=== PATIENT | female | born 1930 | race Caucasian/White ===

== ENCOUNTER 2017-01-08 08:33 | Inpatient (IN) | payer OTHER ==
[2017-01-08] VITALS (38 sets, daily range): BP systolic 64–127; BP diastolic 24–110
[~2017-01-08] VITALS: Ht 162.6 cm; Wt 72.6 kg
--- NOTE | 2017-01-08 08:33 | NUR ---
Patient BIBA to bed [address] Ni at bedside evaluating patient.
--- NOTE | 2017-01-08 08:36 | NUR ---
PT BROUGHT IN BY AMBULANCE FROM [facility] DUE TO LETHARGY AND PER REPORT UNABLE TO USE RIGHT SUBCLAVIAN ADIA CATHETER.PT IS ORIENTED TO PERSON. BI PAP SETTING OF IPAP OF 10 CM H2O;EPAP OF 5 CM H2O; 40 % O2.PT HAS A HX OF HTN ,DM,ESDRD;W/ ADIA CATH;SKIN IS INTACT;HOB ELEVATED;NEEDS ATTENDED;SAFETY MEASURES DONE;NEEDS ATTENDED;POSITIONED FOR COMFORT.
[2017-01-08] MEDS ORDERED: NACL 0.9% 500 ML IV SCH (08:37)
[2017-01-08] MEDS ORDERED: ACETAMINOPHEN EXTRA STRENGTH 500 MG TAB PO ONE (08:40)
[2017-01-08] MEDS ORDERED: ALBUTEROL SULFATE/IPRATROPIU 3 ML SOL IH ONE (08:40)
[2017-01-08] MEDS ORDERED: LEVOFLOXACIN 500 MG/D5W PREMIX 100 ML IV ONE (08:40)
--- NOTE | 2017-01-08 08:45 | NUR ---
PATIENT OUT OF ROOM THIS TIME IN RADIOLOGY FOR CHEST CAT SCAN
--- NOTE | 2017-01-08 08:49 | NUR ---
Patient taken to radiology via gurney at this time.
--- NOTE | 2017-01-08 09:01 | NUR ---
ARTERAIL BLOOD GAS DRAWN ORDERED PUNCTURE SITE AT RIGHT RADIAL WITH POST PUNCTURE SITE PRESSURE NO EVIDENCE OF TRAUMA TOLERATED PROCEDURE WELL WITHOUT INCIDENT
--- NOTE | 2017-01-08 09:10 | NUR ---
SPUTUM COLLECTION VIA NASOTRACHEAL SUCTION HYPEROXGENATION USED PRE AND POST CATHETER PASSING USING ASEPTIC TECHNIQUE [place] LUBRICANT APPLIED AT PROXIMAL END OF A 14FR CATHETER INSERTION INTO LEFT NARES AFTER TWO MINUTES INSERTION INTO RIGHT NARES COLLECTION OF LARGE THICK YELLOW SECRETIONS TOLERATED WELL WITHOUT INCIDENT
--- NOTE | 2017-01-08 09:15 | NUR ---
HHN THERAPY GIVEN ORDERED TOLERATED WELL WTIHOUT INCIDENT
--- NOTE | 2017-01-08 09:25 | NUR ---
BIPAP ORDERED SETTINGS: IPAP [id number] EPAP 5 cmH20 BACK UP RATE 14 FIO2 40% KEEP SATURATION GREATER THAN 94% PLACED PATIENT ON A BIPAP (VISION) PLUGGED INTO RED OUTLET TO A MEDIUM FACIAL MASK SECURED WITH A HEAD STRAP TOLERATING WELL WITHOUT INCIDENT
--- NOTE | 2017-01-08 09:42 | NUR ---
CRITICAL LAB VALUE RELAYED TO DR ALLEN.
[2017-01-08] MEDS ORDERED: NACL 0.9% 500 ML IV ONE (10:05)
--- NOTE | 2017-01-08 10:23 | NUR ---
PT IS RESTING ON BED;BP IS LOW;NOTIFIED DR ALLEN;ORDERED FOR 1 MORE IV LINE AQND TO START LEVOPHED;
[2017-01-08] MEDS ORDERED: NOREPINEPHRINE 4 MG in DEXTROSE 5% 250 ML IV ONE (10:30)
[2017-01-08] MEDS ORDERED: ALBUTEROL SULF0.5 M1 IH (10:47)
[2017-01-08] MEDS ORDERED: DONNATAL1 TA1 PO (10:47)
[2017-01-08] MEDS ORDERED: SENNA8.6 M1 PO (10:47)
[2017-01-08] MEDS ORDERED: ACETAMIN-CODE12.5 ML PO (10:47)
[2017-01-08] MEDS ORDERED: LEADER MELATONIN5 MG PO (10:47)
[2017-01-08] MEDS ORDERED: VENTOLIN H0.09 MG/Ac IH (10:47)
[2017-01-08] MEDS ORDERED: SUCRALFATE1 G1 PO (10:47)
[2017-01-08] MEDS ORDERED: ATROVENT H0.017 MG/A IH (10:47)
[2017-01-08] MEDS ORDERED: MUCINEX600 M1 PO (10:47)
[2017-01-08] MEDS ORDERED: REGLAN5 M1 PO (10:47)
[2017-01-08] MEDS ORDERED: NEPHRO-VITE1 TA1 (10:47)
[2017-01-08] MEDS ORDERED: BUSPIRONE HCL10 M1 PO (10:47)
[2017-01-08] MEDS ORDERED: GEMFIBROZIL600 M1 PO (10:47)
[2017-01-08] MEDS ORDERED: VITAMIN D22000 IU PO (10:47)
[2017-01-08] MEDS ORDERED: LAXATIVE5 M1 PO (10:47)
[2017-01-08] MEDS ORDERED: LEVOTHYROXIN0.025 M2 PO (10:47)
[2017-01-08] MEDS ORDERED: PREDNISONE20 M1 PO (10:47)
[2017-01-08] MEDS ORDERED: HYDRALAZINE HCL25 M2 PO (10:47)
[2017-01-08] MEDS ORDERED: BENTYL10 MG PO (10:47)
[2017-01-08] MEDS ORDERED: GLYCOLAX119 GM PO (10:47)
[2017-01-08] MEDS ORDERED: ACIDOPHILU1 Billion (10:47)
[2017-01-08] MEDS ORDERED: NACL 0.9% 1,000 ML IV SCH (10:48)
[2017-01-08] MEDS ORDERED: ONDANSETRON 4 MG/2 ML VIAL IVP PRN (10:50)
[2017-01-08] MEDS ORDERED: ALBUTEROL SULFATE/IPRATROPIU 3 ML SOL IH PRN ×4 (10:55→13:55)
[2017-01-08] MEDS ORDERED: NOREPINEPHRINE 4 MG/4 ML VIAL IV ONE (10:56)
--- NOTE | 2017-01-08 12:15 | NUR ---
Patient will be admitted to care of DR HOWARD. Admited to ICU. Will go to room 3. Belongings list completed. Report to RUPERT PACHECO.
--- NOTE | 2017-01-08 12:45 | NUR ---
CENTRAL LINE CATH DONE BY DR ALLEN AND WICHO LEYVA.PT TOLERATED WELL PROCEDURE.NO ACUTE DISTRESS NOTED AT THIS TIME;WILL CONTINUE TO MONITOR PT.
--- NOTE | 2017-01-08 13:09 | NUR ---
LEVOPHED DRIP WAS INCREASE TO 4 MCG W/ BASELINE BP OF 82/46.
--- NOTE | 2017-01-08 13:15 | NUR ---
Donnell mckeon in ED - 01/08/17 at 1336 by [facility] LEVOPHED INCREASED TO 4 MCG PER MIN PER ERMD INSTRUCTION;CONCRETE BOOM OPERATOR NOTIFIED.
--- NOTE | 2017-01-08 13:15 | NUR ---
LEVOPHED WAS INCREASE TO 4 MCG PER ERMD INSTRUCTION;BP OF 82/46;HR OF 107;94 %.TEMP OF 99.2 F.
--- NOTE | 2017-01-08 13:20 | NUR ---
RECEIVED PT FROM ER NURSE. PT LETHARGIC BUT AROUSABLE. ALERT TO SELF AND PLACE. [place]ER SPEAKING ONLY. MUMBLING AN SLURRING OF SPEECH. PT CAN UNDERSTAND SIMPLE COMMANDS. WEAKNESS NOTED. RECEIVED WITH R FEMORAL CENTRAL LINE TRIPLE LUMEN. PATENT AND INTACT. RUNNING LEVOPHED IV AT 4 MCG/MIN. PERIPHERAL IV ACCESS NOTED ON RIGHT AND LEFT HAND, 24 GAUGE EACH. PATENT AND INTACT. PAIN NOTED ONLY DURING TRANSFER. NS IVF STARTED AND RUNNING AT 20 CC/HR. FAMILY AT BEDSIDE. HX PROVIDED BY FAMILY. RT AT BEDSIDE TO RESUME BIPAP. TOLERATED WELL. ECG MONITORING STARTED. WILL CONTINUE TO MONITOR.
--- NOTE | 2017-01-08 14:00 | NUR ---
MD GUSTAVO AT BEDSIDE. ORDERS RECEIVED REGARDING LEVOPHED DRIP.
--- NOTE | 2017-01-08 14:15 | NUR ---
INCREASED LEVOPHED DRIP TO 6 MCG/MIN PER MD ORDER D/T CONTINUOUS LOW BP
[2017-01-08] MEDS ORDERED: SENNA 8.6 MG TAB PO PRN (14:25)
[2017-01-08] MEDS ORDERED: DEXTROSE 50% 50 ML SYR IVP PRN (14:30)
--- NOTE | 2017-01-08 14:45 | NUR ---
INCREASED LEVOPHED TO 8 MCG/MIN PER MD ORDER FOR CONTINUE LOW BP
[2017-01-08] MEDS: ALBUTEROL SULFATE/IPRATROPIU 3 ML SOL IH SCH ×3 (15:24→23:00)
[2017-01-08] MEDS ORDERED: NOREPINEPHRINE 4 MG in DEXTROSE 5% 250 ML IV PRN (15:30)
--- NOTE | 2017-01-08 16:15 | NUR ---
PATIENT PULLING ON BIPAP MASK REFUSING TO WEAR REMOVED AND PLACED ON SUPPLEMENTAL OXYGENT VIA VENTI MASK AT 40%/12 LPM BIPAP VISION ON STANDBY
--- NOTE | 2017-01-08 16:15 | NUR ---
PT UNABLE TO TOLERATE BIPAP. CANNOT TOLERATED MASK MANIFESTED BY SCREAMING, AGITATION, AND CONSISTENTLY ATTEMPTING TO REMOVE MASK. RT CONSULTED. CHANGE TO VENTURI MASK FIO2 40% 12 L.
[2017-01-08] MEDS ORDERED: VANCOMYCIN PER PHARMACY MC PRN (17:10)
[2017-01-08] MEDS: BLOOD GLUCOSE MONITORING 1 DEV DEV FS SCH ×2 (17:22→21:00)
[2017-01-08] MEDS: NACL 0.9% 1,000 ML IV SCH (17:24)
[2017-01-08] MEDS ORDERED: PIPER/TAZO 2.25GM/D5W PREMIX 50 ML IV SCH (18:00)
[2017-01-08] MEDS ORDERED: ALBUTEROL SULFATE/IPRATROPIU 3 ML SOL IH SCH (18:00)
[2017-01-08] MEDS ORDERED: CLINDAMYCIN 600 MG in DEXTROSE 5% 50 ML IV SCH (18:00)
--- NOTE | 2017-01-08 18:00 | NUR ---
PLACED PT ON NC 3 L FOR DINNER. PT TOLERATED WELL. O2 SAT BETWEEN 96-98%. WILL LEAVE IS. PT REMAINS COMFORTABLE. WILL CONTINUE TO MONITOR
--- NOTE | 2017-01-08 19:00 | NUR ---
REPORT GIVEN TO RUPERT COOPER. PT IS SLEEPING IN BED. SIDE RAILS X [address] BED AT LOWEST SETTING. FALL, SAFETY, ASPIRATION PRECAUTION MAINTAINED.
--- NOTE | 2017-01-08 19:15 | NUR ---
RECEIVED PATIENT ON BED, AWAKE, ALERT AND ORIENTED; [place]K SPEAKING ONLY; ON 3 LITERS , SO2 96%. CARDIACSCOPE SHOWS ON SINUS RHYTHM WITH OCCASIONAL PVC'S AND PAC'S. COMMENCING ON IVF NORMAL SALINE AT 100 ML/HR VIA CENTRAL LINE ON RIGHT FEMORAL AND ON LEVOPHED DRIP AT 8 MCG/MIN TITRATED TO KEEP SBP ABOVE 90 OR MEAN OF 65. ABDOMEN IS SOFT, NON TENDER, ACTIVE BOWEL SOUNDS.
--- NOTE | 2017-01-08 19:45 | NUR ---
WITH BOUTS OF PRODUCTIVE COUGH BUT PATIENT UNABLE TO COUGH OUT SPUTUM; SHE KEEPS ON SWALLOWING.
[2017-01-08] MEDS ORDERED: VANCOMYCIN 1GM/DEXT 5% PREMIX 200 ML IV SCH (20:00)
[2017-01-08] MEDS ORDERED: NOREPINEPHRINE 8 MG in DEXTROSE 5% 250 ML IV PRN (20:00)
--- NOTE | 2017-01-08 20:00 | NUR ---
ASSISTED PATIENT IN TURNING AND REPOSITIONING.
--- NOTE | 2017-01-08 20:30 | NUR ---
VISITED BY DAUGHTERS; UPDATED ON PATIENT'S MEDICAL CONDITION.
[2017-01-08] MEDS: INSULIN LISPRO SLIDING SCALE 100 UNITS/ML VIAL SUBQ PRN (20:41)
[2017-01-08] MEDS ORDERED: NON-FORMULARY ITEM (Melatonin (Melatonin) 1 TAB) PO SCH (21:00)
[2017-01-09] VITALS (68 sets, daily range): BP systolic 81–143; BP diastolic 43–92
--- NOTE | 2017-01-09 00:15 | NUR ---
HAD BEDWETTING; KEPT CLEAN DRY AND COMFORTABLE.
[2017-01-09] MEDS: ALBUTEROL SULFATE/IPRATROPIU 3 ML SOL IH SCH ×6 (03:05→23:05)
[2017-01-09] MEDS: NACL 0.9% 1,000 ML IV SCH ×3 (04:46→16:08)
[2017-01-09] MEDS: LEVOTHYROXINE 0.025 MG TAB PO SCH (07:00)
--- NOTE | 2017-01-09 07:10 | NUR ---
ENDORSED TO AM SHIFT RN DR. PACHECO.
--- NOTE | 2017-01-09 07:24 | NUR ---
RECEIVE REPORT FROM RUPERT COOPER. PT IS RESTING IN BED. COUGHING NOTED. DENIES SPUTUM. R FEMORAL TRIPLE LUMEN PATENT AND INTACT. RIGHT PERIPHERAL IV 24 GAUGE PATENT AND INTACT. LEFT PERIPHERAL IV 24 GAUGE PATENT AND INTACT. NC AT 3 L, OXYGEN SATURATING AT 92%. DENIES SOB. FALL, SAFETY, AND ASPIRATION PRECAUTION MAINTAINED. WILL CONTINUE TO MONITOR FOR CHANGES.
--- NOTE | 2017-01-09 07:33 | NUR ---
RECEIVED CRITICAL LAB VALUES OF WBC 51.2 FROM LAB AT 0731. REPORTED TO DR. NEFF AT 0733. NO NEW ORDERS RECEIVED.
--- NOTE | 2017-01-09 07:37 | NUR ---
PATIENT HAS BEEN SCREENED AND CATEGORIZED HIGH NUTRITION RISK. PATIENT WILL BE SEEN WITHIN 1-2 DAYS OF ADMISSION. 01/09/17-01/10/[address]
[2017-01-09] MEDS: BLOOD GLUCOSE MONITORING 1 DEV DEV FS SCH ×4 (08:15→21:20)
[2017-01-09] MEDS: VIT-B COMP/VIT-C/FOLIC ACID 1 TAB PO SCH (08:15)
[2017-01-09] MEDS: DOCUSATE SODIUM 100 MG GELCAP PO SCH (08:16)
[2017-01-09] MEDS: BISACODYL 5 MG TABEC PO SCH (08:16)
[2017-01-09] MEDS: busPIRone 5 MG TAB PO SCH (08:17)
[2017-01-09] MEDS: PIPER/TAZO 2.25GM/D5W PREMIX 50 ML IV SCH ×2 (08:18→21:10)
[2017-01-09] MEDS ORDERED: LEVOFLOXACIN 500 MG/D5W PREMIX 100 ML IV SCH (09:00)
[2017-01-09] MEDS ORDERED: BUSPIRONE HCL 10 MG PO SCH (09:00)
--- NOTE | 2017-01-09 09:37 | NUR ---
PT ABLE TO PRODUCE SPUTUM SPECIMEN. COLLECTED AND SEND TO LAB ORDERED
--- NOTE | 2017-01-09 10:00 | NUR ---
PT VOIDED ON ABEAN. LARGE AMOUNT NOTED. JENNIFER CARE PROVIDED.
--- NOTE | 2017-01-09 10:30 | NUR ---
C/O 4/10 HEADACHE. PRN PAIN MEDICATION GIVEN ORDERED.
[2017-01-09] MEDS: ACETAMINOPHEN 325 MG TAB PO PRN (10:34)
--- NOTE | 2017-01-09 11:00 | NUR ---
D/C LEFT PERIPHERAL IV. TOLERATED WELL
[2017-01-09] MEDS ORDERED: POLYVINYL ALCOHOL 1.4% OP 15 ML SOL OP PRN (11:15)
--- NOTE | 2017-01-09 12:29 | NUR ---
01/09/17 RD INITIAL ASSESSMENT COMPLETED PLEASE REFER TO NUTRITION ASSESSMENT UNDER CARE ACTIVITY FOR ESTIMATED NUTRITIONAL NEEDS. RD RECOMMENDATIONS: 1. CONTINUE ON CCHO 60GM, RENAL, MECHANICAL SOFT DIET TOLERATED. 2. ENCOURAGE INCREASED PO INTAKES. 3. RD WILL F/U 3-5 DAYS; MODERATE RISK. HERMINIO RIOS RD
[2017-01-09] MEDS ORDERED: ALTEPLASE 2 MG VIAL MC SCH (12:30)
--- NOTE | 2017-01-09 12:30 | NUR ---
JAVIER FROM [facility] NOTIFIED OF DR. GREENWOOD'S ORDER
[2017-01-09] MEDS ORDERED: ACETYLCYSTEINE 10% (100 MG/ML) 100 MG/ML VIAL INH SCH (13:00)
--- NOTE | 2017-01-09 14:18 | NUR ---
CONTINUE TO PROVIDE JENNIFER CARE NECESSARY. PT RESTING COMFORTABLY.
--- NOTE | 2017-01-09 16:00 | NUR ---
SL. AGITATED, CONFUSED. REASSURED. CALMED DOWN AFTER.
--- NOTE | 2017-01-09 17:30 | NUR ---
PM AND JENNIFER CARE DONE CARE DONE. C/O ITCHINESS ON BACK OF LEGS. SKIN DRY. LOTION APPLIED. FELT BETTER AFTER.
--- NOTE | 2017-01-09 17:45 | NUR ---
DAUGHTER AND GRANDDAUGHTER AT BEDSIDE, UPDATED ON PT'S CONDITION.
--- NOTE | 2017-01-09 19:06 | NUR ---
REPORT GIVEN TO KENNETH RUPERT.
--- NOTE | 2017-01-09 19:10 | NUR ---
RECEIVED PATIENT ON BED AWAKE BUT SOMEWHAT CONFUSE; ON 3 LITERS / SO2 96%. SOB ON EXERTION NOTED. CARDIACSCOPE SHOWS ON SINUS RHYTHM WITH OCCASIONAL PAC'S AND PVC'S. COMMENCING ON IVF NORMAL SALINE AT 75 ML/HR VIA CENTRAL LINE ON RIGHT GROIN AND ON LEVOPHED DRIP AT 4 MCG/MIN AND TITRATED PER PROTOCOL. HD CATH ON RIGHT SUBCLAVIAN, INTACT; ABDOMEN IS SOFT, ACTIVE BOWEL SOUNDS.
[2017-01-09] MEDS: ACETYLCYSTEINE 10% (100 MG/ML) 100 MG/ML VIAL INH SCH ×2 (19:45→23:05)
--- NOTE | 2017-01-09 21:00 | NUR ---
DIALYSIS NURSE MATTHEW IS HERE AND UNCLOGGED THE HD CATH PORT WITH ALTEPASE ORDERED BY .
[2017-01-09] MEDS: ZOLPIDEM 5 MG TAB PO SCH (21:15)
[2017-01-09] MEDS: INSULIN LISPRO SLIDING SCALE 100 UNITS/ML VIAL SUBQ PRN (21:22)
--- NOTE | 2017-01-09 23:00 | NUR ---
SETTLED TO SLEEP; V/S ESPECIALLY BP MONITORED CLOSELY.
[2017-01-10] VITALS (15 sets, daily range): BP systolic 95–131; BP diastolic 36–94
[2017-01-10] MEDS: ACETYLCYSTEINE 10% (100 MG/ML) 100 MG/ML VIAL INH SCH ×6 (02:41→22:53)
[2017-01-10] MEDS: ALBUTEROL SULFATE/IPRATROPIU 3 ML SOL IH SCH ×6 (02:41→22:53)
--- NOTE | 2017-01-10 04:00 | NUR ---
COMPLAINED OF HEADACHE; TYLENOL DOSE GIVEN PO. MORNING BED BATH DONE; ABLE TO REST AND SLEEP THEREAFTER.
[2017-01-10] MEDS: ACETAMINOPHEN 325 MG TAB PO PRN (04:01)
[2017-01-10] MEDS: LEVOTHYROXINE 0.025 MG TAB PO SCH (06:27)
[2017-01-10] MEDS: NACL 0.9% 1,000 ML IV SCH ×3 (06:28→20:07)
--- NOTE | 2017-01-10 07:15 | NUR ---
RECIVED REPORT FROM KENNETH RN PT IA AWAKE CONFUSE,O2 3L/N/C KYLE COUGH ,
--- NOTE | 2017-01-10 07:30 | NUR ---
BLOOD GLUCOSE 87 NO INSULIN NEEDE.
[2017-01-10] MEDS: BISACODYL 5 MG TABEC PO SCH (08:13)
[2017-01-10] MEDS: busPIRone 5 MG TAB PO SCH (08:13)
[2017-01-10] MEDS: VIT-B COMP/VIT-C/FOLIC ACID 1 TAB PO SCH (08:13)
[2017-01-10] MEDS: BLOOD GLUCOSE MONITORING 1 DEV DEV FS SCH ×4 (08:14→20:50)
[2017-01-10] MEDS ORDERED: OSMITROL 25% 12.5 GM/50 ML VIAL IV PRN (08:35)
[2017-01-10] MEDS ORDERED: guaiFENesin DM 200/20 MG-10 ML 10 ML UDC PO PRN (08:35)
--- NOTE | 2017-01-10 08:40 | NUR ---
HEMODIALYSIS STARTED PT VITAL STABLE AT THE TIME..
[2017-01-10] MEDS ORDERED: DEXTROSE 5% IV SCH (09:00)
[2017-01-10] MEDS ORDERED: LEVOFLOXACIN 250 MG/D5 PREMIX 50 ML IV SCH ×2 (09:00→21:55)
[2017-01-10] MEDS ORDERED: VANCOMYCIN IV SCH (09:00)
[2017-01-10] MEDS: DOCUSATE SODIUM 100 MG GELCAP PO SCH (09:45)
[2017-01-10] MEDS: PIPER/TAZO 2.25GM/D5W PREMIX 50 ML IV SCH ×2 (09:46→20:08)
[2017-01-10] MEDS ORDERED: VANCOMYCIN 1GM/DEXT 5% PREMIX 200 ML IV SCH (10:00)
--- NOTE | 2017-01-10 11:15 | NUR ---
SEEN BY DR. CHEN AT BEDSIDE, ORDER RECEIVED.
--- NOTE | 2017-01-10 11:30 | NUR ---
BLOOD GLUCOSE 89 N0 INSULIN NEEDED,
--- NOTE | 2017-01-10 11:50 | NUR ---
HEMODIALYSIS COMPLETED REMOVED 2000ML OF FLUID.
[2017-01-10] MEDS: LORazepam 2 MG/ML VIAL IM/IVP PRN ×2 (12:53→20:20)
--- NOTE | 2017-01-10 14:17 | NUR ---
SEEN BY DR GREENWOOD AT BED SIDE, ORDER RECEIVED, HE SAID IN HIS OPINION PT CAN DOWN GRADE TO TELE IF OK WITH DR CHEN.
--- NOTE | 2017-01-10 14:20 | NUR ---
CALLED DR CHEN SHE SAID TO CHECK WITH HER PRIMARY.
--- NOTE | 2017-01-10 16:30 | NUR ---
BLOOD GLUCOSE 86 NO INSULN NEEDED./
--- NOTE | 2017-01-10 17:50 | NUR ---
VISIT BY DAUGHTER AT BED SIDE.
--- NOTE | 2017-01-10 18:13 | NUR ---
CALL TELE REPORT GIVE TO ELDER EMERY WILL TRANSFER TO RM 124A.
--- NOTE | 2017-01-10 18:45 | NUR ---
PT. TRANSFER TO [facility] A INBED, BY HALEY EMERY AND [facility].
--- NOTE | 2017-01-10 18:50 | NUR ---
RECEIVED PT AWAKE AAOX1 VIA GURNEY ACCOMPANIED BY ICU NURSE AND DAUGHTER, WITH O2 VIA NC AT 3LPM, WITH PERMACATH ON RIGHT UPPER CHEST X 2 LUMENS DIALYSIS ACCESS, WITH CENTRAL FEMORAL CATHETER X3 LUMENS PATENT AND INTACT. WITH LEFT ARM BRUISE, OTHERWISE, SKIN INTACT. WITH SCDS ON. ORIENTED PT TO ROOM AND ENVIRONMENT, HOWEVER, REINFORCEMENT NEEDED. SAFETY PRECAUTIONS ENFORCED. MEDS FROM ICU PLACED IN MED ROOM. CALL LIGHT WITHIN REACH, WILL CONTINUE TO MONITOR.
--- NOTE | 2017-01-10 19:15 | NUR ---
RECEIVED REPORT FROM RUPERT RODRIGUEZ. INITIAL ASSESSMENT COMPLETED. PT AAOX1; CONFUSED. PT TRYING TO GET OUT OF BED. PT HAS RIGHT FEMORAL CENTRAL LINE WITH THREE LUMEN. PT HAS PERMA CATH ON RIGHT CHEST. PT'S SKIN IS INTACT; BRUISE ON LEFT ARM. PT ON O2 3L NC. PT HAS SCDS. PT BEDBOUND. PT CONFUSED. SAFETY MEASURES IN PLACE, BED ALARM ON. WILL CONTINUE TO MONITOR PT.
--- NOTE | 2017-01-10 19:31 | NUR ---
ENDORSED PT TO RUPERT REED FOR CONTINUITY OF CARE IN STABLE CONDITION
--- NOTE | 2017-01-10 19:40 | NUR ---
RT AT BEDSIDE.
--- NOTE | 2017-01-10 19:45 | NUR ---
PT'S DAUGHTER BLANCA CALLED TO ASK FOR PT'S STATUS. PT STABLE, WILL CONTINUE TO MONITOR PT.
--- NOTE | 2017-01-10 20:00 | NUR ---
PT REPOSITIONED, PT STABLE AT THIS TIME. BED ALARM ON.
[2017-01-10] MEDS: ZOLPIDEM 5 MG TAB PO SCH (20:08)
--- NOTE | 2017-01-10 20:23 | NUR ---
PT TOLERATED 2100 MEDS WELL. PT CONFUSED TRYING TO REMOVE CENTRAL LINE. ATIVAN GIVEN ORDERED. VS STABLE. MITTENS ALSO PUT ON PT TO TRY PREVENT PT FROM REMOVING IV AND HEART MONITOR. WILL CONTINUE TO MONITOR PT.
--- NOTE | 2017-01-10 22:00 | NUR ---
PT REPOSITIONED, PT STABLE AT THIS TIME. BED ALARM ON.
--- NOTE | 2017-01-10 22:06 | NUR ---
CALLED DR. FARFAN TO NOTIFY THAT PT HAS ORDERED NS AT 75 ML/HR IS SHE HAS RENAL FAILURE. STATED THAT IS IS OK AND TO CONTINUE WITH THE ORDER. WILL FOLLOW UP ON ORDERS.
--- NOTE | 2017-01-11 00:25 | NUR ---
ROUNDS MADE. VS CHECKED; PT STABLE. PT SLEEPING AT THIS TIME. NO SIGNS OF DISTRESS/DISCOMFORT NOTED. BED ALARM ON.
[2017-01-11 00:35] VITALS: BP 128/79
--- NOTE | 2017-01-11 00:39 | NUR ---
PT'S LINEN CHANGED. PT REPOSITIONED WITH HELP OF [place]. PT STABLE WILL CONTINUE TO MONITOR PT.
--- NOTE | 2017-01-11 01:51 | NUR ---
PT STABLE AT THIS TIME; PT SLEEPING. NO SIGNS OF DISTRESS/DISCOMFORT NOTED. WILL CONTINUE TO MONITOR PT.
--- NOTE | 2017-01-11 02:00 | NUR ---
PT REPOSITIONED, LINEN CHANGED WITH HELP OF PAOLO CANALES. PT STABLE AT THIS TIME. BED ALARM ON.
[2017-01-11] MEDS: ALBUTEROL SULFATE/IPRATROPIU 3 ML SOL IH SCH ×6 (03:32→23:29)
[2017-01-11] MEDS: ACETYLCYSTEINE 10% (100 MG/ML) 100 MG/ML VIAL INH SCH ×6 (03:32→23:30)
[2017-01-11 04:00] VITALS: BP 122/79
--- NOTE | 2017-01-11 04:00 | NUR ---
PT REPOSITIONED/TURNED. IV PUMP ALARMING, FLUSHED AND INFUSING FLUIDS WELL. WILL CONTINUE TO MONITOR PT.
[2017-01-11] MEDS: PIPER/TAZO 2.25GM/D5W PREMIX 50 ML IV SCH ×3 (04:02→21:08)
[2017-01-11] MEDS: NACL 0.9% 1,000 ML IV SCH (05:29)
[2017-01-11] MEDS: LEVOTHYROXINE 0.025 MG TAB PO SCH (05:53)
--- NOTE | 2017-01-11 06:00 | NUR ---
PT HAS BEEN TURNED/REPOSITIONED Q2HR THROUGHOUT THE SHIFT.
[2017-01-11] MEDS: BLOOD GLUCOSE MONITORING 1 DEV DEV FS SCH ×4 (06:24→21:08)
--- NOTE | 2017-01-11 06:50 | NUR ---
PT'S DAUGHTER CALLED AND ASKED FOR PT'S STATUS. PT ASKED WHAT KIND OF MEDICATIONS THE PT TOOK DURING NIGHT. I MENTIONED THAT I GAVE ATIVAN BECAUSE PT WAS ANXIOUS, TRYING TO GET OUT OF BED AND TRYING TO REMOVE IV. PT'S DAUGHTER STATED THAT SHE DID NOT WANT HER MOTHER TO TAKE ATIVAN. WILL ENDORSED TO COMING SHIFT NURSE.
--- NOTE | 2017-01-11 07:32 | NUR ---
REPORT RECEIVED FROM DEREK EMERY AT BEDSIDE. PT NOTED TO BE SLEEPING AT THIS TIME.
--- NOTE | 2017-01-11 07:38 | NUR ---
ENDORSED PLAN OF CARE TO DAY SHIFT NURSE. PT IN STABLE CONDITION.
--- NOTE | 2017-01-11 07:49 | NUR ---
BIPAP VISION AT BEDSIDE FOR PRN
[2017-01-11 08:00] VITALS: BP 123/61
--- NOTE | 2017-01-11 08:00 | NUR ---
PT STILL SLEEPING AT THIS TIME AND OPENED EYES BRIEFLY BUT WENT BACK TO SLEEP. DR. SCHUSTER AND GROUP WERE IN TO SEE PT BUT PT STILL VERY SLEEPY. WILL CONTINUE TO CHECK ON PT.
[2017-01-11] MEDS: busPIRone 5 MG TAB PO SCH (08:22)
[2017-01-11] MEDS: BISACODYL 5 MG TABEC PO SCH (08:22)
[2017-01-11] MEDS: VIT-B COMP/VIT-C/FOLIC ACID 1 TAB PO SCH (08:23)
[2017-01-11] MEDS: DOCUSATE SODIUM 100 MG GELCAP PO SCH (08:23)
--- NOTE | 2017-01-11 09:00 | NUR ---
PT SLEEPY BUT RESPONDING VERBALLY. NO C/O PAIN VOICED BY PT. REQUIRED TOTAL ASSIST WITH FEEDING. TOOK PO MEDS, 25% OF DIET AND FLUIDS FAIRLY WELL. WILL CONTINUE TO CHECK PT
--- NOTE | 2017-01-11 09:30 | NUR ---
PT'S DAUGHTER BLANCA PHONED FOR UPDATE RE PT'S CONDITION. SHE STATED THAT PT HAD ADVERSE REACTION TO ATIVAN BEFORE AND WANTED MED TO BE DISCONTINUED AND GIVE BENADRYL TO CALM HER DOWN THAT WAS WHAT SHE WAS GETTING IN THE HOME AND SHE WANTED MD TO CALL HER. DR. ESCUDERO NOTIFIED OF SAME.
--- NOTE | 2017-01-11 11:45 | NUR ---
NASOTRACHEAL PROCEDURE: HYPEROXYGENATION USED PRE AND POST SUCTIONING USING STERILE TECHNIQUE APPLIED [place] LUBRICANT AT THE PROXIMAL END OF A 14FR SUCTION CATHETER INSERTION INTO LEFT NARES RETRACTING CATHETER 10-15 SECONDS AFTER 2 MINUTES INSERTION INTO RIGHT NARES RETRACTING CATHETER 10-15 SECONDS OBTAINED LARGE THICK YELLOW SECRETIONS SLIGHT TRAUMA TO RIGHT NARES EXUDING SMALL BLOOD OTHERWISE PATIENT TOLERATED PROCEDURE WELL HHN THERAPY GIVEN POST NASOTRACHEAL SUCTIONING
--- NOTE | 2017-01-11 12:05 | NUR ---
POST HHN THERAPY INCREASED SUPPLEMENTAL OXYGEN TO 3 LPM VIA NC
[2017-01-11 12:10] VITALS: BP 109/61
--- NOTE | 2017-01-11 12:30 | NUR ---
PT STILL SLEEPY BUT MORE AWAKE AT THIS TIME. PT TOLERATED 50% OF LUNCH AND TOOK FLUIDS WELL. REQUIRED TOTAL ASSISTS WITH MEALS AND ADL.
--- NOTE | 2017-01-11 13:15 | NUR ---
DR. GREENWOOD WAS IN TO SEE PT AND MD LEFT NEW ORDERS.
--- NOTE | 2017-01-11 14:50 | NUR ---
PT TURNED AND REPOSITIONED Q2H AND PRN. PT MORE AWAKE AT THIS TIME.
[2017-01-11 16:00] VITALS: BP 100/62
--- NOTE | 2017-01-11 18:00 | NUR ---
CENTRAL LINE TO RT FEMORAL AREA REMOVED PER MD'S ORDER. SAME REMOVED PER PROTOCOL. OLD CATH TIP NOTED TO BE INTACT AND PRESSURE DRESSINGS APPLIED TO SITE FOR 5 MINUTES. PT TOLERATED THE PROCEDURE WELL.
--- NOTE | 2017-01-11 18:30 | NUR ---
PT TOOK OFF GOWN AND TRYING TO PULL OUT IV. MITTS APPLIED TO BOTH HANDS. WILL CONTINUE TO CHECK PT.
--- NOTE | 2017-01-11 19:10 | NUR ---
PT WAS ABLE TO TAKE OFF MITTENS AND PULLED OUT IV. OLD CATH TIP NOTED TO BE INTACT. PRESSURE DRESSING APPLIED TO SITE. MITTENS REAPPLIED.
--- NOTE | 2017-01-11 19:18 | NUR ---
REPORT GIVEN TO MARCELLA EMERY AT BEDSIDE. PT TRYING TO TAKE OFF MITTENS.
--- NOTE | 2017-01-11 19:30 | NUR ---
RECEIVED REPORT FROM DAY RN AT BEDSIDE, PATIENT IS AAOX1, RESTLESS, CONFUSED, TRYING TO REMOVE MITTENS. PATIENT REMOVED IV AND HAS NO ACCESS AT THIS TIME, WILL RE INSERT NEW IV. PERMACATH NOTED TO RIGHT UPPER CHEST, DRESSING INTACT, NO SIGN OF INFECTION NOTED, PATIENT WAS ON 3L O2 VIA NC. SAFETY MEASURES CHECKED, CALL LIGHT WITHIN REACH. WILL CONTINUE TO MONITOR.
[2017-01-11 20:00] VITALS: BP 105/47
--- NOTE | 2017-01-11 20:57 | NUR ---
NEW IV INSERTED 24G TO LEFT HAND, PATIENT CONFUSED. TOLERATED WELL, CALL LIGHT WITHIN REACH. WILL CONTINUE TO MONITOR
--- NOTE | 2017-01-11 21:06 | NUR ---
2013 PLACED PT ON BIPAP. PT HAS SOB AND SOME RETRACTING. SATS ON 3LNC IS 86 TO 88%.PT HAS COARSE BS AND HHNTX WAS GIVEN WITH MUCOMIST. WILL CONT TO MONITOR PT. PLACED PT ON CONTINUOS POX
[2017-01-11] MEDS: ZOLPIDEM 5 MG TAB PO SCH (21:07)
--- NOTE | 2017-01-11 21:10 | NUR ---
PATIENT'S DAUGHTER BLANCA WAS AT BEDSIDE, STATED ATIVAN WAS GIVEN THE OTHER NIGHT AND SHE WOULD RATHER THE PATIENT HAVE BENADRYL, EXPLAINED TO PATIENT I WOULD CALL MD IF IT WAS NEEDED, DAUGHTER VERBALIZED UNDERSTANDING.
--- NOTE | 2017-01-11 21:20 | NUR ---
PM MEDS ADMINISTERED, PARTIAL AMBIEN ADMINISTERED DUE TO PATIENT SPITTING APPLE SAUCE OUT, PATIENT CONFUSED AND NOT COMPLIANT TRYING TO REMOVE MITTENS AND BIPAP, WILL CONTINUE TO MONITOR.
[2017-01-11] MEDS: LORazepam 2 MG/ML VIAL IM/IVP PRN (21:45)
--- NOTE | 2017-01-11 21:48 | NUR ---
PATIENT VERY RESTLESS, REMOVING BIPAP AND MITTENS, PTS DAUGHTER BLANCA CALLED FOR UPDATE, LET HER KNOW PATIENT IS RESTLESS, PT'S DAUGHTER GAVE OKAY TO GIVE ATIVAN TO HELP RELAX THE PATIENT. ATIVAN GIVEN PER MD ORDER, WILL CONTINUE TO CLOSELY MONITOR
--- NOTE | 2017-01-11 22:45 | NUR ---
PATIENT SLEEPING, NO SOB OR SIGN OF DISTRESS AT THIS TIME, CALL LIGHT WITHIN REACH. WILL CONTINUE TO MONITOR.
[2017-01-12] VITALS: BP 108/51
--- NOTE | 2017-01-12 00:20 | NUR ---
PATIENT SLEEPING, VITAL SIGNS STABLE, NO SOB OR SIGN OF DISTRESS, PATIENT RECEIVED BREATHING TX, PATIENT SLEEPING, TOLERATING WELL, ON BIPAP, WILL CONTINUE TO CLOSELY MONITOR.
[2017-01-12] MEDS: LORazepam 2 MG/ML VIAL IM/IVP PRN ×2 (02:50→15:59)
[2017-01-12] MEDS: ALBUTEROL SULFATE/IPRATROPIU 3 ML SOL IH SCH ×5 (02:54→19:44)
[2017-01-12] MEDS: ACETYLCYSTEINE 10% (100 MG/ML) 100 MG/ML VIAL INH SCH ×5 (02:54→19:45)
--- NOTE | 2017-01-12 02:54 | NUR ---
PATIENT RESTLESS AND AGITATED, FREQUENTLY TURNING HEAD SIDE TO SIDE TO REMOVE BIPAP, ADMINISTERED ATIVAN PER MD ORDER, WILL CONTINUE TO MONITOR. CALLED RT, PATIENT SATS 85-87, PATIENT NOW RECEIVING BREATHING TX.
[2017-01-12 04:00] VITALS: BP 129/72
--- NOTE | 2017-01-12 04:10 | NUR ---
VITAL SIGNS STABLE, PATIENT RESTLESS, WILL CONTINUE TO CLOSELY MONITOR.
[2017-01-12] MEDS: PIPER/TAZO 2.25GM/D5W PREMIX 50 ML IV SCH ×2 (04:12→13:37)
--- NOTE | 2017-01-12 05:03 | NUR ---
CALLED THE DIALYSIS TO CONFIRM THEY ARE AWARE PATIENT IS TO RECEIVE DIALYSIS THIS AM. CONFIRMED THEY WOULD COME.
[2017-01-12] MEDS: LEVOTHYROXINE 0.025 MG TAB PO SCH (06:30)
[2017-01-12] MEDS: BLOOD GLUCOSE MONITORING 1 DEV DEV FS SCH ×3 (06:33→16:30)
--- NOTE | 2017-01-12 06:47 | NUR ---
PATIENT'S DAUGHTER CALLED FOR UPDATE ON PATIENT, GAVE UPDATE EXPLAINED PATIENT WAS RESTLESS THROUGHOUT THE NIGHT BUT WAS STABLE, DAUGHTER REQUESTED A URDU SPEAKING NURSE FOR DAY SHIFT IF POSSIBLE, NOTIFIED CHARGE NURSE PHILIP. ASKED DAUGHTER IF SHE WAS STILL OKAY WITH PATIENT RECEIVING ATIVAN IF NEEDED, DAUGHTER STATED SHE WOULD LIKE TO TRY BENADRYL FOR PATIENT, WILL ENDORSE TO DAY NURSE TO MAKE RECOMMENDATION TO THE DOCTORS.
--- NOTE | 2017-01-12 07:02 | NUR ---
RECEIVED PT ON BIPAP. PT IS AWAKE AND AGITATED AT THIS TIME. PT IS TACHYPNEIC. BIPAP SETTINGS 10/5, R12 AND FIO2 50%. PROTECTA-GEL IS PLACED UNDER MASK TO PREVENT SKIN BREAKDOWN. BIPAP IS PLUGGED INTO RED OUTLET WITH ALARMS ON AND FUNCTIONING. WILL CONTINUE TO MONITOR.
--- NOTE | 2017-01-12 07:26 | NUR ---
ENDORSED PATIENT TO DAY RN AT BEDSIDE, STARTING TO GET RESTLESS, PATIENT IN STABLE CONDITION, ON BIPAP.
--- NOTE | 2017-01-12 07:30 | NUR ---
RECEIVED REPORT FROM RUPERT NARANJO. PT IS RESTING IN BED, A/OX1, PT SKIN IS INTACT, IV IS ON THE LEFT WRIST, PATENT, INTACT, INFUSING WELL, PT IS ON BIPAP, INITIAL ASSESSMENT DONE, NO S/S OF RESPIRATORY DISTRESS OR DISCOMFORT NOTED, SAFETY/FALL/ASPIRATION PRECAUTIONS IN PLACE, DISCUSSED PLAN OF CARE WITH PT, PT UNABLE TO COMPREHEND, CALL LIGHT WITHIN REACH, WILL CONTINUE TO MONITOR.
[2017-01-12 08:00] VITALS: BP 112/66
--- NOTE | 2017-01-12 08:00 | NUR ---
RT IS AT BEDSIDE, BIPAP MASK WAS ADJUSTED FOR BETTER COMFORT.
--- NOTE | 2017-01-12 08:45 | NUR ---
PT TAKEN OFF OF BIPAP TO EAT. PT PLACED ON 4L NASAL CANNULA. SPO2 93%. PT IS NOT SOB AND NOT IN RESPIRATORY DISTRESS AT THIS TIME. PT IS LESS AGITATED WITH REMOVAL OF BIPAP MASK. NURSE AWARE
[2017-01-12] MEDS: busPIRone 5 MG TAB PO SCH (08:53)
[2017-01-12] MEDS: BISACODYL 5 MG TABEC PO SCH (08:55)
[2017-01-12] MEDS: VIT-B COMP/VIT-C/FOLIC ACID 1 TAB PO SCH (08:55)
[2017-01-12] MEDS: DOCUSATE SODIUM 100 MG GELCAP PO SCH (08:59)
--- NOTE | 2017-01-12 09:30 | NUR ---
DUE MEDICATIONS WERE GIVEN, PT TOLERATED WELL, NO S/S OF RESPIRATORY DISTRESS OR DISCOMFORT NOTED, CALL LIGHT WITHIN REACH, WILL CONTINUE TO MONITOR.
--- NOTE | 2017-01-12 11:30 | NUR ---
PT IS SLEEPING IN BED AT THIS TIME, CALL LIGHT WITHIN REACH, WILL CONTINUE TO MONITOR.
[2017-01-12 12:00] VITALS: BP 122/71
[2017-01-12] MEDS: HYDROcodone/APAP 5/325 MG 1 TAB TAB PO PRN ×2 (12:01→18:01)
--- NOTE | 2017-01-12 12:30 | NUR ---
PT IS RECEIVING DIALYSIS AT BEDSIDE AT THIS TIME, NO S/S OF RESPIRATORY DISTRESS OR DISCOMFORT NOTED, CALL LIGHT WITHIN REACH, WILL CONTINUE TO MONITOR.
[2017-01-12] MEDS ORDERED: MUCOMYST INH (13:50)
[2017-01-12] MEDS ORDERED: NOVAPLUS ZOSYN50 M1 IV (13:57)
--- NOTE | 2017-01-12 14:16 | NUR ---
PER BETHANIE AT [facility], THEY CAN TAKE THIS PATIENT BACK WITH IV ANTIBIOTICS AND BIPAP. SHE JUST NEEDED THE BIPAP SETTING. I SENT HER THE UPDATED PACKAGE WITH THE BIPAP SETTING. I TOLD HER THAT THE WBC WAS 23 AND SHE SAID SHE WOULD CHECK WITH THE DON TO WHETHER THEY COULD TAKE THIS PATIENT WITH THE WBC AT 23. SHE SAID IF THE PATIENT COMES BACK TODAY SHE CAN GO TO ROOM 305B UNDER DR. BOX. BETHANIE CALLED BACK AND SAID THAT THE DON WAS OKAY WITH THE WBC. SHE ALSO TOLD ME THAT THE BIPAP WILL BE DELIVERED TO [place] WITHIN 4-5 HOURS.
--- NOTE | 2017-01-12 14:20 | NUR ---
ABG RESULTS GIVEN TO , PHYSICIAN REQUESTS PT BE PLACED BACK ON BIPAP AT THIS TIME.
--- NOTE | 2017-01-12 14:30 | NUR ---
PT IS STILL RECEIVING DIALYSIS AT BEDSIDE AT THIS TIME, WILL CONTINUE TO MONITOR.
--- NOTE | 2017-01-12 14:44 | NUR ---
YVETTE FROM [facility] HERE. SHE SAID SHE WOULD ARRANGE FOR THE TRANSPORT FOR THIS PATIENT TO [facility] TODAY . THEY WILL CALL THE FLOOR TO TELL THEM WHAT TIME TRANSPORT WILL REPAIR WELDER THE PATIENT.
--- NOTE | 2017-01-12 14:45 | NUR ---
CALLED GUILLERMINA EMERY AND INFORMED HER THAT [facility] WILL ARRANGE FOR TRANSPORT AND THEY WILL CALL FOR THE MODE AND TRANSPORT TIME. I ALSO SAID TO CALL [facility] AND PATIENT WILL BE GOING TO ROOM 305B.
--- NOTE | 2017-01-12 14:47 | NUR ---
PT PLACED BACK ON BIPAP NURSE AWARE.PT EXTREMELY AGITATED AT THIS TIME.
--- NOTE | 2017-01-12 15:04 | NUR ---
SPOKE WITH YVETTE FROM [facility]. SHE SAID SHE SPOKE WITH THE PATIENT'S DAUGHTER AND THE DAUGHTER IS AWARE AND OKAY WITH THE PATIENT GOING TO [facility] TODAY.
--- NOTE | 2017-01-12 15:59 | NUR ---
PT IS IN BED, PT IS ANXIOUS AND AGITATED, WILL MEDICATE WITH PRN ANTI ANXIETY MEDICATION, CALL LIGHT WITHIN REACH, WILL CONTINUE TO MONITOR.
[2017-01-12 16:00] VITALS: BP 130/75
--- NOTE | 2017-01-12 16:00 | NUR ---
PT IS RESTING IN BED, GRAND DAUGHTER IS AT BEDSIDE AT THIS TIME, CALL LIGHT IS WITHIN REACH, WILL CONTINUE TO MONITOR.
--- NOTE | 2017-01-12 16:01 | NUR ---
PT KEEPS REMOVING BIPAP MASK, PT AGITATED AND WONT ALLOW BIPAP MASK TO BE PLACED BACK ON. NURSE AWARE OF PT REFUSAL. PT PLACED ON 4L NASAL CANNULA.
--- NOTE | 2017-01-12 16:06 | NUR ---
SPOKE WITH YVETTE AND BETHANIE AT [facility]. PATIENT WILL BE [facility] AND SAL[facility] SPECIALIST BY [facility] AT 7:30P.M. [facility] CHARGE NURSE AWARE. PER BETHANIE, THE BIPAP WILL BE DELIVERED TO [facility] BY [facility]. INFORMED YVETTE THAT [facility] NEEDS TO LET THE FLOOR KNOW IF THE BIPAP HAS NOT BEEN DELIVERED. NEED THE BIPAP AT [facility] PRIOR TO PATIENT GOING THERE.
[2017-01-12] MEDS ORDERED: ROBITUSSIN/DEXT10 ML PO (17:01)
--- NOTE | 2017-01-12 17:38 | NUR ---
I CALLED [facility] AND GAVE REPORT TO RUPERT ALVARADO. I LET HER KNOW THE PATIENT WAS GOING TO BE PICKED UP TODAY AT [facility], I ASKED HER IF THEY HAD A BIPAP ALREADY DELIVERED AT THEIR FACILITY, JENNY SAID THEY DID NOT HAVE YET BUT IT WAS ON ITS WAY BEING DELIVERED, I ASKED HER IF IT WOULD BE THERE BY THE TIME THE PATIENT ARRIVED, SHE SAID SHE WAS NOT SURE, AND ALL SHE KNEW WAS THAT THE BIPAP WAS ON ITS WAY.
--- NOTE | 2017-01-12 19:00 | NUR ---
WAS INFORMED BY YULY JACKSON PT RHYTHM WAS A. FIB, CALLED CERTIFIED TECHNICIAN SPECIALIST DOCTOR, PER DOCTOR ORDER EKG STAT AND IF PT IS CONFIRMED TO BE A. FIB THEN GIVE LOPRESSOR 5MG, IV ONCE.
--- NOTE | 2017-01-12 19:20 | NUR ---
ENDORSED PT RUPERT NARANJO. FOR CONTINUITY OF CARE, INFORMED MARCELLA AN EKG STAT WAS ORDER TO CONFIRM IF PT IS A. FIB.
--- NOTE | 2017-01-12 19:30 | NUR ---
RECEIVED REPORT FROM DAY RN AT BEDSIDE, PATIENT IS RESTING IN BED WITH GRANDDAUGHTER AT BEDSIDE, PATIENT ON NC AT 4L/MIN, SATS AT 92%, NO SOB NOTED, PATIENT HR ELEVATED TO 130-140 UNCONTROLLED AFIB, MD WAS ALREADY MADE AWARE, AWAITING STAT EKG, PATIENT DOSENT HAVE ANY APPARENT DISTRESS AT THIS TIME. SKIN INTACT, PATIENT AAOX1 CONFUSED. PATIENT IS SUPPOSED TO BE TRANSFERRED TO [facility] FOR FURTHER CARE, RECOVERY ANALYST FROM [facility]. ON STANDBY AWAITING RESULTS FROM EKG. DISCUSSED PLAN OF CARE WITH PATIENT'S GRANDDAUGHTER, SHE VERBALIZED UNDERSTANDING, SAFETY MEASURES CHECKED, CALL LIGHT WITHIN REACH. WILL CONTINUE TO MONITOR.
--- NOTE | 2017-01-12 20:10 | NUR ---
EKG OBTAINED, PATIENT CONVERTED TO SINUS TACH WITH PVC, CALLED DR ANDERSON AND GAVE RESULTS WITH CURRENT HR OF 101, GAVE OKAY FOR PATIENT TO CONTINUED TO BE DISCHARGED.
--- NOTE | 2017-01-12 20:20 | NUR ---
DR RAMIREZ CALLED WANTING RESULTS OF EKG, GAVE RESULTS WITH CURRENT HR OF 98, GAVE NO FURTHER ORDERS AND GAVE OKAY TO CONTINUE DISCHARGE. [facility]ORT ON THEIR WAY TO INTAKE COUNSELOR THE PATIENT, PATIENT DRESSED AND READY FOR PICKUP.
--- NOTE | 2017-01-12 21:30 | NUR ---
[facility] PICKED UP PATIENT FOR TRANSPORT, PATIENT ON OXYGEN AT 4L, WRIST BANDS CUT OFF, IV WAS TAKEN OUT ON DAY SHIFT, PAPER WORK SIGNED BY GRANDDAUGHTER, PATIENT IN STABLE CONDITION.
== END 2017-01-12 21:30 | DRG 871 ==
LOC: MED 08:33 → MIC 10:54 → MTU 01-10 18:53
PROVIDERS: ADMIT Family Medicine; ATTEND Family Medicine
PROC: 06HM33Z Insertion of Infusion Device into Right Femoral Vein, Percutaneous Approach (ICD-10-PCS; principal; 2017-01-08)
PROC: B54BZZA Ultrasonography of Right Lower Extremity Veins, Guidance (ICD-10-PCS; 2017-01-08)
PROC: 5A09457 Assistance with Respiratory Ventilation, 24-96 Consecutive Hours, Continuous Positive Airway Pressure (ICD-10-PCS; 2017-01-08)
PROC: 5A1D60Z (ICD-10-PCS; 2017-01-10)
DX: A41.9 Sepsis, unspecified organism (principal); R65.21 Severe sepsis with septic shock; J69.0 Pneumonitis due to inhalation of food and vomit; N17.0 Acute kidney failure with tubular necrosis; N18.6 End stage renal disease; I50.43 Acute on chronic combined systolic (congestive) and diastolic (congestive) heart failure; E43 Unspecified severe protein-calorie malnutrition; J15.1 Pneumonia due to Pseudomonas; J96.21 Acute and chronic respiratory failure with hypoxia; N39.0 Urinary tract infection, site not specified; J44.1 Chronic obstructive pulmonary disease with (acute) exacerbation; I13.2 Hypertensive heart and chronic kidney disease with heart failure and with stage 5 chronic kidney disease, or end stage renal disease; E11.22 Type 2 diabetes mellitus with diabetic chronic kidney disease; G47.00 Insomnia, unspecified; E78.5 Hyperlipidemia, unspecified; E03.9 Hypothyroidism, unspecified; E11.21 Type 2 diabetes mellitus with diabetic nephropathy; F02.80 Dementia in other diseases classified elsewhere, unspecified severity, without behavioral disturbance, psychotic disturbance, mood disturbance, and anxiety; G30.9 Alzheimer's disease, unspecified; I27.2 Other secondary pulmonary hypertension; I08.2 Rheumatic disorders of both aortic and tricuspid valves; D47.3 Essential (hemorrhagic) thrombocythemia; E83.42 Hypomagnesemia; D63.8 Anemia in other chronic diseases classified elsewhere; E83.39 Other disorders of phosphorus metabolism; H54.0 Blindness, both eyes; H35.30 Unspecified macular degeneration; Z96.653 Presence of artificial knee joint, bilateral; D53.9 Nutritional anemia, unspecified; E11.51 Type 2 diabetes mellitus with diabetic peripheral angiopathy without gangrene; Z88.2 Allergy status to sulfonamides; Z87.891 Personal history of nicotine dependence; Z88.0 Allergy status to penicillin; Z79.899 Other long term (current) drug therapy; Z88.8 Allergy status to other drugs, medicaments and biological substances; Z99.2 Dependence on renal dialysis; Z68.27 Body mass index [BMI] 27.0-27.9, adult